=== PATIENT | male | born 1970 | race Caucasian/White ===

== ENCOUNTER → 2017-01-30 | Outpatient (CLI) | payer OTHER ==
[~2017-01-30] MED LIST: ABILIFY 5 MG TAB5 MG PO; ABILIFY10 MG PO; AMBIEN 10 MG TA10 MG PO; AMITRIPTYLINE H50 M2 PO; ATIVAN0.5 MG PO; ATORVASTATIN CA40 MG PO; BAYER CHEWABLE81 MG PO; BENTYL10 MG PO; BRILINTA90 MG PO; COLACE100 MG PO; CYMBALTA30 MG PO; CYTOTEC200 MCG PO; DOXEPIN 25 MG C25 M1 PO; DOXEPIN 25 MG C25 MG PO; ED-SPAZ0.125 MG PO; FLUOXETINE HCL40 MG PO; HYDROCODON-ACE1 EAC8 PO; LOPRESSOR50 PO; LORAZEPAM 1 MG T1 MG PO; METHOCARBAMOL500 M2 PO; MOBIC15 MG PO; NABUMETONE 750750 M1 PO; NEURONTIN 300300 M1 PO; NEURONTIN 400400 M1 PO; NEURONTIN600 MG PO; NITROGLYCERIN0.4 MG SL; NORCO 5-325 TA1 EACH PO; OSCIMIN0.125 MG PO; PERCOCET 5-3251 EACH PO; PERCOCET PO; PHENERGAN 25 MG25 M1 PO; PLAVIX 75 MG TA75 M1 PO; PRINIVIL5 MG PO; PROMETHAZINE HC25 M1 PO; PROTONIX40 M2; PROTONIX40 M2 PO; RANITIDINE 150150 M1 PO; RISPERDAL0.5 MG PO; SUBOXONE 8 MG-1 EAC3 SL; TRAZODONE HCL100 MG PO; VIIBRYD20 MG PO; ZANAFLEX2 MG PO; ZANAFLEX4 MG PO; ZANTAC 150MG T150 M1 PO; ZOCOR40 MG PO; gabapentin PO
--- NOTE | 2017-02-01 09:35 | PAINCON ---
[facility] [address] [place] [address] PAIN MANAGEMENT CONSULTATION Name: KUSH BRUCE JR Room: [facility]#: [id number] Admission: 01/30/17 Attend Phys: Isa Lund Discharge: Date of : 66 Report #: [id number] THIS REPORT FOR: //name// CC: Nayan Taveras The patient is a very pleasant 46-year-old gentleman typically treated for symptomatic lumbar radiculopathy, DJD affecting bilateral hips and neuropathic pain component. He had been habituated to higher dose opiates. We rotated to Suboxone for some time. He weaned off of all opiates about 6 months ago. He has been maintained on meloxicam 7.5 b.i.d., tizanidine for spasm and gabapentin 600 mg t.i.d. He stopped seeing the pain clinic since 08/16/2016. He returns to the pain clinic today noting pain is getting a little worse low back, left greater than right leg. He states recently his back is starting to "go out." He is exhibiting some components of neurogenic claudication and notes the pain is exacerbated with coughing suggesting a radicular pain component. PHYSICAL EXAMINATION: GENERAL: Shows a pleasant 46-year-old gentleman. VITAL SIGNS: Subjective pain score is 6 on the VAS, 6 feet tall, 242 pounds, BMI is 33 kilograms per meter squared. Vital signs stable including blood pressure 111/67, pulse 80 and respirations 16. MUSCULOSKELETAL: Lower extremity strength shows decreased right leg strength to hip flexion, extension and dorsiflexion. Left leg is stronger at 4-5/5 (right leg is 3-4/5). Positive straight leg raise, right at 30 degrees. IMAGING: Reviewed diagnostic findings including MRI from 02/01/2017 noting right paracentral disk extrusion at L4-L5. ASSESSMENT #1: Symptomatic lumbar radiculopathy on clinical exam and history, DJD of hips and neuropathic pain. RECOMMENDATION: Continue meloxicam 7.5 b.i.d., tizanidine 4 mg t.i.d. for spasm and gabapentin 600 mg t.i.d. I have taken the liberty of writing for 6 months of current medication. ASSESSMENT #2: Acute exacerbation of lumbar radiculopathy. RECOMMENDATIONS: Epidural injection under fluoroscopy today at L5-S1. PROCEDURE: Lumbar epidural steroid injection under fluoroscopy. PROCEDURE NOTE: After both written and informed consent to include risk of spinal cord damage, increased pain, weakness and dural puncture, the patient was taken to the fluoroscopy suite, placed in the prone position. After sterile prep and drape, a skin wheal with lidocaine was raised. A 22-gauge epidural Tuohy needle was inserted in the midline at L5-S1 [place] [address] PAIN MANAGEMENT CONSULTATION Name: KUSH BRUCE JR Room: [facility]#: [id number] Admission: 01/30/17 Attend Phys: Isa Lund Discharge: Date of : 66 Report #: [id number] Negative aspiration for cerebrospinal fluid or blood was noted. Then 1 mL of Omnipaque under biplanar fluoroscopy showed good spread within the epidural space. This was followed with 80 mg of triamcinolone plus 1 mL of 1.5% preservative-free Xylocaine, 0.5 mL Xylocaine was then injected to flush the needle; it was removed. The patient was monitored for an appropriate period of time and discharged in good and stable condition. <ELECTRONICALLY SIGNED> By: Wai Taveras DO 02/01/17 0935 [id number] Taveras DO /nt
== END | disposition home or self-care (01) ==
LOC: M.PC 03:27
DX: M54.16 Radiculopathy, lumbar region (principal); Z68.33 Body mass index [BMI] 33.0-33.9, adult; M16.0 Bilateral primary osteoarthritis of hip; G62.9 Polyneuropathy, unspecified; Z79.899 Other long term (current) drug therapy

== ENCOUNTER → 2017-07-17 | Outpatient (CLI) | payer OTHER ==
--- NOTE | 2017-07-18 07:13 | PAINCON ---
[facility] [address] [place] [address] PAIN MANAGEMENT CONSULTATION Name: KUSH BRUCE JR Room: [facility]#: [id number] Admission: 07/17/17 Attend Phys: Isa Lund Discharge: Date of : 66 Report #: [id number] THIS REPORT FOR: //name// CC: Nayan Taveras The patient is a very pleasant 46-year-old gentleman who has been treated for symptomatic lumbar radiculopathy, neuropathic pain component over time. His last visit was on 01/30/2017. I did a single epidural injection at that time. He prior had been seen back in the summer of 2016. He returns to the pain clinic noting the injection afforded 65% pain relief for greater than a month and half with gradually return of pain without antecedent trauma and overuse. The patient notes the pain has been getting worse for the last several weeks. Rates the pain as 7 on a VAS. PHYSICAL EXAMINATION: Shows 6 feet tall, 234 pounds gentleman, BMI 31.8 kilograms per meter squared. Blood pressure 107/61, pulse 71 and respirations 18. Alert and oriented to person, place and time, judged to be a reasonable historian. Rises from chair using armrest. Diffuse tenderness across the low back, pain across the low back, radiating to the left buttock and leg. Left leg does show objective strength loss compared to the right perhaps 3-4/5 versus 4-5/5 on the right side. Positive straight leg raise at 30 degrees on the left. ASSESSMENT: Symptomatic lumbar radiculopathy by clinical exam and history. The patient has had good relief (65% relief for 6+ weeks) following a single injection now some 6 months ago. RECOMMENDATION: 1. We will renew gabapentin 600 mg t.i.d., tizanidine 4 mg t.i.d. and meloxicam 7.5 b.i.d. 2. We will seek authorization for lumbar epidural injection under fluoroscopy at next visit (L5-S1). <ELECTRONICALLY SIGNED> By: Wai Taveras DO 07/18/17 0713 1531 [id number] Taveras DO /nt
== END ==
LOC: M.PC 04:00
DX: M54.16 Radiculopathy, lumbar region (principal)

== ENCOUNTER 2017-07-21 09:50 | Inpatient (IN) | payer OTHER ==
[~2017-07-21] VITALS: Ht 182.9 cm; Wt 107.5 kg
[~2017-07-21 09:50] MED LIST changes: -ABILIFY 5 MG TAB5 MG PO; -ATORVASTATIN CA40 MG PO; -PERCOCET 5-3251 EACH PO; -PERCOCET PO; -TRAZODONE HCL100 MG PO
[2017-07-21 10:00] VITALS: BP 139/96
[2017-07-21 10:15] LABS: URINE BLOOD TRACE (Negative); URINE CLARITY CLEAR; URINE COLOR DARK YELLOW; URINE GLUCOSE-RANDOM NEGATIVE (Negative); URINE KETONES NEGATIVE (Negative); URINE LEUKOCYTES-REFLEX NEGATIVE (Negative); URINE NITRITE-REFLEX NEGATIVE (Negative); URINE PROTEIN 1+ (Negative); URINE SPECIFIC GRAVITY >= 1.030 (1.005-1.030)
[2017-07-21 10:23] LABS: ICTOTEST (BILI CONFIRMATORY) Negative (Negative); URINE BILIRUBIN 1+ (Negative)
[2017-07-21 10:24] LABS: ABSOLUTE BASOPHILS 0.1 thou/uL (0.0-0.2); ABSOLUTE LYMPHOCYTES 1.7 thou/uL (0.8-5.3); ABSOLUTE MONOCYTES 0.7 thou/uL (0.0-1.2); ABSOLUTE NEUTROPHILS 7.7 thou/uL (1.6-8.1); EOSINOPHILS 0.2 %; HEMATOCRIT 44.8 % (42.0-52.0); HEMOGLOBIN 15.9 gm/dL (14.0-18.0); LYMPHOCYTES 16.6 %; MCH 32.1 pg (26.0-34.0); MCHC 35.6 g/dL (28.0-37.0); MCV 90.2 fL (80.0-100.0); MONOCYTES 6.6 %; MPV 7.6 fl. (7.2-11.1); NUCLEATED RBCS 0 /100WBC; PLATELET COUNT* 320 thou/uL (150-400); POLYS 75.6 %; RBC 4.97 mil/uL (4.50-6.00); RDW-CV 12.7 % (10.5-14.5); WBC 10.1 thou/uL (4.0-11.0)
[2017-07-21 10:29] LABS: CALCIUM 9.8 mg/dL (8.5-10.1); CREATININE 1.4 mg/dL (0.6-1.3); POTASSIUM 3.9 mmol/L (3.5-5.1)
[2017-07-21 10:34] LABS: ALBUMIN 4.8 g/dL (3.4-5.0); TOTAL BILIRUBIN 1.9 mg/dL (<0.1-1.0); TOTAL PROTEIN 8.5 g/dL (6.4-8.2)
[2017-07-21 11:17] VITALS: BP 133/7
[2017-07-21 11:35] VITALS: BP 151/105
--- NOTE | 2017-07-21 11:35 | NUR ---
PT. ARRIVED TO ROOM 219, ABLE TO AMBULATE TO BED. PT. A/OX4, VSS, PT. MED/SURG STATUS. ASSESSMENT AND ADMISSION PROCESS COMPLETED, REFER TO CHARTING. PT. STATES HE ISN'T ABLE TO REMEMBER LAST BM. REPORTS MILD RELIEF OF ABD. PAIN FROM TORDAL GIVEN ER AND MINOR RELIEF OF NAUSEA FROM ZOFRAN GIVEN. DR. CAMEJO ON UNIT AND NOTIFIED OF PT. COMPLAINTS, NEW ORDERS RECEIVED. CALL LIGHT IN REACH, WILL CONTINUE WITH PLAN OF CARE
[2017-07-21] MEDS ORDERED: TRAZODONE HCL100 MG PO (14:03)
[2017-07-21] MEDS ORDERED: ATORVASTATIN CA40 MG PO (14:04)
[2017-07-21] MEDS ORDERED: ABILIFY 5 MG TAB5 MG PO (14:04)
[2017-07-21] MEDS ORDERED: AMITRIPTYLINE H50 M2 PO (14:06)
[2017-07-21] MEDS ORDERED: NEURONTIN600 MG PO (14:07)
[2017-07-21 16:00] VITALS: BP 133/77
--- NOTE | 2017-07-21 19:34 | NUR ---
PT. PROGRESSING TOWARDS GOALS. TREATED FOR PAIN AND NAUSEA X2 THIS SHIFT. TOLERATED CLEAR LIQUID DIET AT DINNER, AND STATED HE IS FEELING SLIGHTLY BETTER. HOURLY ROUNDING COMPLETED THROUGH OUT THE DAY FOR PT. SAFETY.
[2017-07-21 20:00] VITALS: BP 135/90
[2017-07-22 00:46] VITALS: BP 99/65
[2017-07-22 04:21] VITALS: BP 97/68
--- NOTE | 2017-07-22 06:45 | NUR ---
Pt reports he rested well overnight. Some nausea this am; zofran given per pt request. No emesis overnight. States he is hopeful of being discharged today. VSS. Will continue to monitor.
[2017-07-22 08:00] VITALS: BP 127/85
--- NOTE | 2017-07-22 11:39 | EKG ---
[place] [address] ELECTROCARDIOGRAM REPORT Name: KUSH BRUCE JR Room: [address] IN [facility]#: [id number] Admission: 07/21/17 Attend Phys: Isa Dela Cruz Discharge: Date of : 66 Report #: [id number] THIS REPORT FOR: //name// [facility] ED Test Date: 2017-07-21 Test Time: 10:08:11 Pat Name: KUSH BRUCE Department: Room: Gender: Report Programmer: [place] : 1970 Requested By: Troy Turner Order Number: [id number] MD: David West Measurements Intervals [place] Rate: 64 P: 8 MS: 177 QRS: -35 QRSD: 99 T: 17 QT: 378 QTc: 390 Interpretive Statements Sinus rhythm Atrial premature complexes in couplets Inferior infarct, old possible Consider anterior infarct Compared to ECG 03/07/2013 12:41:52 Atrial premature complex(es) now present Myocardial infarct finding now present Electronically Signed On 07-22-2017 11:39:04 CDT by David West [email or web address] <ELECTRONICALLY SIGNED> By: David West MD, [facility] 07/22/17 1139 1008 [id number] David West MD, [facility] /EPI
[2017-07-22 12:00] VITALS: BP 106/70
--- NOTE | 2017-07-22 12:13 | NUR ---
RECEIVED REPORT FROM GALILEO PEREZ. ASSUMED CARE OF PT AROUND 0730. PT A&O X4. VSS. O2 SAT 98% ON RA. PT M/S STATUS. AM ASSESSMENT AND VITALS COMPLETED CHARTED. PT REPORTS ABDOMINAL PAIN 05/28 AND HAS RECEIVED IV PAIN MEDICATION WITH RELIF. PT TOLERATING CLD. PT UP AD JENNIFER IN ROOM. PT INFORMED OF PLAN OF CARE, COMMUNICATES UNDERSTANDING. PT HOPING TO GO HOME TODAY. PT CURRENTLY RESTING IN BED WATCHING TV. CALL LIGHT IS WITHIN REACH. LOW RISK FALL PREAUTIONS ARE IN PLACE. HOURLY ROUNDING PERFORMED. WCTM.
[2017-07-22 13:09] LABS: CALCIUM 8.3 mg/dL (8.5-10.1); CREATININE 1.2 mg/dL (0.6-1.3)
--- NOTE | 2017-07-22 14:40 | NUR ---
UA OBTAINED. URINE DARK MATT AND FOUL SMELLING. WCTM.
[2017-07-22 15:14] LABS: URINE BLOOD NEGATIVE (Negative); URINE CLARITY CLEAR; URINE COLOR YELLOW; URINE GLUCOSE-RANDOM NEGATIVE (Negative); URINE KETONES NEGATIVE (Negative); URINE LEUKOCYTES-REFLEX NEGATIVE (Negative); URINE NITRITE-REFLEX NEGATIVE (Negative); URINE PROTEIN TRACE (Negative); URINE SPECIFIC GRAVITY >= 1.030 (1.005-1.030)
[2017-07-22 15:16] LABS: ICTOTEST (BILI CONFIRMATORY) Negative (Negative); URINE BILIRUBIN 1+ (Negative)
[2017-07-22 16:00] VITALS: BP 105/65
--- NOTE | 2017-07-22 18:26 | NUR ---
VSS. PT REMAINS A&OX4. VSS. O2 SAT >90% ON RA. PT REMAINS M/S STATUS. PT NAUSEATED AFTER MEALS AND RECEIVED ZOFRAN X2. ABDOMINAL PAIN MANAGED WITH IV PAIN MEDICATION. PT UP AD JENNIFER. PT HAS HAD MINIMAL OUTPUT THIS SHIFT, AWARE. IV TO LEFT AC INTACT AND INFUSING IVF. SPOUSE VISITED THIS AFTERNOON. PT CURRENTLY RESTING IN BED WATCHING TV. CALL LIGHT WITHIN REACH. LOW FALL RISK PRECAUTIONS IN PLACE. HOURLY ROUNDING. WCTM FOR DURATION OF SHIFT.
[2017-07-22 20:29] VITALS: BP 127/73
[2017-07-23] VITALS: BP 104/68
[2017-07-23 06:05] LABS: CALCIUM 7.9 mg/dL (8.5-10.1); CREATININE 1.3 mg/dL (0.6-1.3); POTASSIUM 3.8 mmol/L (3.5-5.1)
--- NOTE | 2017-07-23 06:19 | NUR ---
Pt reports he rested well overnight. Voided only 225 overnight, dark ghulam urine. Medicated twice for both nausea and pain, reports adequate relief afterwards. VSS. Will continue to monitor.
[2017-07-23 08:00] VITALS: BP 115/72
[2017-07-23] MEDS ORDERED: PERCOCET PO (13:00)
[2017-07-23] MEDS ORDERED: PHENERGAN 25 MG25 M1 PO ×2 (13:00→13:04)
[2017-07-23] MEDS ORDERED: PERCOCET 5-3251 EACH PO (13:03)
[2017-07-23 13:13] VITALS: BP 115/72
--- NOTE | 2017-07-23 13:45 | NUR ---
ASSUMED CARE OF PATIENT THIS AM AT 0730. PATIENT IS ALERT AND ORIENTED X 4. HE C/O CONTINUED ABD PAIN AND NAUSEA TODAY. PATIENT ALSO STATED THAT HIS URINE OUTPUT CONTINUED DECREASED. PATIENT MEDICATED FOR C/O PAIN AND NAUSEA THIS AM PRIOR TO LUNCH. PATIENT STATED PAIN MEDICATION WAS EFFECTIVE. DR IN TO ROUND AND DISCHARGE ORDERS WERE WRITTEN. IV FLUIDS AND SALINE LOCK DISCONTINUED. PATIENT GIVEN DISCHARGE, FOLLOWUP INSTRUCTIONS, CARENOTES AND PRESCRIPTIONS. PATIENT DISCHARGED TO HOME WITH FAMILY. INSTRUCTED TO INCREASE PO FLUID INTAKE ON DISCHARGE.
[2017-11-19] MEDS ORDERED: PERCOCET PO (08:10)
[2017-11-19] MEDS ORDERED: ZANAFLEX4 MG PO (08:10)
[2017-11-19] MEDS ORDERED: MOBIC15 MG PO (08:10)
== END 2017-07-23 14:07 | disposition home or self-care (01) | DRG 392 ==
LOC: M.ERS 09:50 → M.TBA-ER 10:14 → M.ERS 10:14 → M.TBA-ER 10:38 → M.2W 10:38
PROVIDERS: Family Medicine; ADMIT Internal Medicine
DX: K58.9 Irritable bowel syndrome, unspecified (principal); R11.2 Nausea with vomiting, unspecified; E86.0 Dehydration; F31.9 Bipolar disorder, unspecified; K21.9 Gastro-esophageal reflux disease without esophagitis; G89.29 Other chronic pain; E78.00 Pure hypercholesterolemia, unspecified; F12.10 Cannabis abuse, uncomplicated; Z87.891 Personal history of nicotine dependence; Z98.890 Other specified postprocedural states; Z95.5 Presence of coronary angioplasty implant and graft; Z88.6 Allergy status to analgesic agent; Z88.0 Allergy status to penicillin; Z79.2 Long term (current) use of antibiotics; Z79.82 Long term (current) use of aspirin; Z79.899 Other long term (current) drug therapy

== ENCOUNTER → 2017-08-14 | Outpatient (CLI) | payer OTHER ==
[~2017-08-14] MED LIST changes: +ABILIFY 5 MG TAB5 MG PO; +ATORVASTATIN CA40 MG PO; +PERCOCET 5-3251 EACH PO; +PERCOCET PO; +TRAZODONE HCL100 MG PO
--- NOTE | 2017-08-15 07:27 | PAINCON ---
[address] [address] PAIN MANAGEMENT CONSULTATION Name: KUSH BRUCE JR Room: [facility]#: [id number] Admission: 08/14/17 Attend Phys: Isa Lund Discharge: Date of : 66 Report #: [id number] THIS REPORT FOR: //name// CC: Nayan Taveras DATE OF SERVICE: 08/14/2017 HISTORY OF PRESENT ILLNESS: The patient is a 46-year-old gentleman, prior seen in the pain clinic on 07/17/2017 with acute exacerbation of lumbar radicular pain. We sought authorization for epidural injection under fluoroscopy at that time. He returns to pain clinic today noting pain continues to be problematic radiating down both legs. Positive straight leg raise on the left. Pain is in L5 pattern. He was admitted overnight to the hospital, 07/21 through 07/22/2017, for dehydration. His electrolytes return to normal. States he has been simply working outside in the heat for the week and became systemically ill. Presently, he is doing reasonably well. Rates his subjective pain score 8 on a VAS. PHYSICAL EXAMINATION: Otherwise unchanged from last visit, blood pressure 102/74, pulse 68, respirations 16, BMI is 32.3 kilograms per meter squared. Diffuse tenderness across the low back, modestly antalgic gait, positive straight leg raise on the left. ASSESSMENT: Symptomatic lumbar radiculopathy. PROCEDURE: Lumbar epidural injection under fluoroscopy. PROCEDURE NOTE: After both written and informed consent to include risk of spinal cord damage, increased pain, weakness and dural puncture, the patient was taken to the fluoroscopy suite, placed in the prone position. After sterile prep and drape, a skin wheal with lidocaine was raised. A 22-gauge epidural Tuohy needle was inserted in the midline at L5-S1 with good loss to resistance. Negative aspiration for cerebrospinal fluid or blood was noted. Then 1 mL of Omnipaque under biplanar fluoroscopy showed good spread within the epidural space. This was followed with 80 mg of triamcinolone plus 1 mL of 1.5% preservative-free Xylocaine, 0.5 mL Xylocaine was then injected to flush the needle; it was removed. The patient was monitored for an appropriate period of time and discharged in [place] [address] PAIN MANAGEMENT CONSULTATION Name: KUSH BRUCE JR [id number] Admission: 08/14/17 Attend Phys: Isa Lund Discharge: Date of : 66 Report #: [id number] I have the patient follow up in 4 weeks for reevaluation. Cancel if doing well. <ELECTRONICALLY SIGNED> By: Wai Taveras DO 08/15/17 0727 1256 1957[facility] Centerromaine Taveras DO /lizeth
== END | disposition home or self-care (01) ==
LOC: M.PC 05:04
DX: M54.16 Radiculopathy, lumbar region (principal); G89.29 Other chronic pain; Z88.0 Allergy status to penicillin; Z88.8 Allergy status to other drugs, medicaments and biological substances; Z79.899 Other long term (current) drug therapy